=== PATIENT | female | born 1950 | race African-American/Black ===

== ENCOUNTER 2018-12-09 11:09 | Day surgery (SDC) | payer OTHER ==
[2018-12-08 11:12] VITALS: BMI 44.2
[2018-12-09] MEDS ORDERED: LIDOCAINE HCL 1% EPINEPHRINE 1:200,000 30 ML VIAL (PF) ONE (13:25)
[2018-12-09] MEDS ORDERED: LIDO 2%/EPI 1:200000 PRESRVFRE (20 ML SDVIAL) INF ONE (13:50)
[2018-12-09 14:37] VITALS: TEMP 98
[2018-12-09] MEDS ORDERED: IBUPROFEN 400 MG TABLET (FP) PO PRN (14:42)
[2018-12-09] MEDS ORDERED: ACETAMINOPHEN 325 MG TABLET (FP) PO PRN (14:42)
[2018-12-09 15:05] VITALS: BP 130/70; PULSE 80
--- NOTE | 2018-12-14 15:54 | OP ---
DATE OF OPERATION: 12/09/2018 PREOPERATIVE DIAGNOSIS: Vulvar lesion. POSTOPERATIVE DIAGNOSIS: Vulvar lesion. SURGEON: Angela Barajas MD DESCRIPTION OF OPERATION: While patient was in lithotomy position, after prep and drape of the vulvar area, immediately the 2% lidocaine injection area which was left labia majora, the lesion was completely anesthetized. At this time, the whole lesion with a generous margin was removed. The base was cauterized, and then, the adipose tissue was sutured with 4-0 Vicryl and skin was closed with 2-0 Vicryl. Estimated blood loss was 2 mL. Patient tolerated the procedure, was sent to recovery room. Benedict [id number]
--- NOTE | 2018-12-14 17:32 | PATH ---
Surgical Pathology Report Patient Name: RONALD HOPKINS [facility]. Rec. #: [id number] /Age/Gender: 1950 (Age: 68) / F Account: [id number] Location: [facility] Taken: 12/09/2018 Received: 12/10/2018 Reported: 12/14/2018 Physicians: Felicia Barajas M.D. Specimen(s) Received LESION FROM LEFT LABIA Clinical History Left labia lesion for 2 months Final Diagnosis LESION FROM LEFT LABIA, EXCISION: EPITHELIAL ULCERATION, LOBULAR PATTERN OF VASCULAR PROLIFERATION WITH INFLAMMATION AND EDEMA, CONSISTENT WITH PYOGENIC GRANULOMA. Electronically Signed Bertha England M.D. Gross Description Received in formalin labeled "lesion of left labia," is a 1.1 x 0.9 x 0.5 cm patel-brown, polypoid portion of skin. The base is inked green and the specimen is bisected. The specimen is entirely submitted in one cassette. /12/10/2018 [facility]
== END 2018-12-09 15:00 | disposition home or self-care (01) ==
LOC: JASU-SURG 11:09
PROVIDERS: ATTEND Obstetrics & Gynecology
PROC: 0UBM0ZX Excision of Vulva, Open Approach, Diagnostic (ICD-10-PCS; principal; 2018-12-09 13:00)
DX: N90.89 Other specified noninflammatory disorders of vulva and perineum (principal)
CPT/HCPCS: 88305-TC